=== PATIENT | male | born 1990 | race Hispanic/Latino ===

== ENCOUNTER 2021-04-15 10:28 | Outpatient (AMBR) | payer MEDICAID, SELFPAY ==
--- NOTE | 2021-04-02 14:37 | PTNOTE_ITS ---
PT OP Initial Eval Patient Information Visit Reasons: pain in right knee Medical Diagnosis: Z47.89; S83.241D Treatment Dx #1: Right Knee Pain Treatment Dx #2: Right Knee Weakness Date of Onset: 01/26/21 Initial Assessment Subjective Pt is a 31 y/o male s/p right knee arthroscopic surgery by Dr Amaro 01/26/21. Pt mention that his medial meniscus was cleaned. Pt still has pain (7/10) with certain activities. Pt has limitation with deep squat, kneeling, pivoting, c hores, standing, walking, running, taking care of his kids, and performing recreational activities. Objective Right Knee AROM: 0 deg to 140 deg Right Knee MMTs Quads: 4-/5 Hs: 3+/5 Right Hip MMTs Glute Med: 3+/5 Glute Max: 3+/5 SLS: 20 sec Deep Squat: pain towards end range Knee Cap Mobility: hypomobile laterally Assessment Pt demonstrate right knee pain and weakness s/p knee surgery leading to decline function and difficulty with ADLs. Pt will benefit from physical therapy to increase strength, stability, and work on endurance Short Term and Pattern Carrier Goals 1) Decrease knee pain to 2/10 in 8 wks to be able to perform squatting activities 2) Increase right knee MMTs grossly to 4/5 in 8 wks to be able to perform work duties 3) Increase hip MMTs grossly to 4-/5 in 8 wks to be able to perform recreational activities 4) Increase SLS to 30 sec in 8 wks to be able to perform self care activities 5) Indep with HEP Treatment Plan 1) Manual Therapy 2) Therapeutic Activities 3) Therapeutic Exercises 4) Modalities (ice, heat) 5) Balance Training 6) This patient's plan of care will be transfer to Brian Leal PT, DPT as of 04/19/21 Frequency and Duration 2 x wk for 8 wks Certification Dates: 04/02/21 to 07/02/21 Office Procedures PT Treatments PT Date of Service: 04/02/21 OP PT Eval Mod Complex 30 minutes: Yes
--- NOTE | 2021-04-06 15:24 | PT.ODAYNRPT ---
PT Outpatient Daily Note Date of Service: 04/06/21 OP Daily Note Visit Reasons: pain in right knee Outpatient Physical Therapy Treatment Date: 04/06/21 Subjective: Pt still notice sting inside his knee with walking and bending. Objective: Please see flow chart for list of ther ex performed Assessment: tolerate exercises with minimal pain Plan: Continue with PT Length of Time (minutes) of Treatment: 30 Minutes Office Procedures PT Treatments PT Date of Service: 04/02/21 OP PT Eval Mod Complex 30 minutes: Yes PT Treatments PT Date of Service: 04/06/21 Therapeutic Exercise 30 minutes: Yes
--- NOTE | 2021-04-09 11:48 | PT.ODAYNRPT ---
PT Outpatient Daily Note Date of Service: 04/09/21 OP Daily Note Visit Reasons: pain in right knee Outpatient Physical Therapy Treatment Date: 04/09/21 Subjective: Pt's knee still sting in the incision area. Overall knee feels good. Objective: Please see flow chart for list of ther ex performed Assessment: tolerate exercises with minimal pain; after prone knee flexion stretch Pt demonstrate normal knee flexion AROM Plan: Continue with PT Length of Time (minutes) of Treatment: 30 Minutes Office Procedures PT Treatments PT Date of Service: 04/02/21 OP PT Eval Mod Complex 30 minutes: Yes PT Treatments PT Date of Service: 04/06/21 Therapeutic Exercise 30 minutes: Yes PT Treatments PT Date of Service: 04/09/21 Therapeutic Exercise 30 minutes: Yes
--- NOTE | 2021-04-15 14:11 | PT.ODAYNRPT ---
PT Outpatient Daily Note Date of Service: 04/15/21 OP Daily Note Visit Reasons: pain in right knee Outpatient Physical Therapy Treatment Date: 04/15/21 Subjective: Pt's knee is about the same no change in pain more stiffness. Pt stated that he can move his legs with less stiffness Objective: Please see flow chart for list of ther ex performed Assessment: tolerate exercises with minimal pain Plan: Continue with PT Length of Time (minutes) of Treatment: 30 Minutes Office Procedures PT Treatments PT Date of Service: 04/02/21 OP PT Eval Mod Complex 30 minutes: Yes PT Treatments PT Date of Service: 04/06/21 Therapeutic Exercise 30 minutes: Yes PT Treatments PT Date of Service: 04/09/21 Therapeutic Exercise 30 minutes: Yes PT Treatments PT Date of Service: 04/15/21 Therapeutic Exercise 30 minutes: Yes
== END 2021-04-15 23:59 | disposition home or self-care (01) ==
PROVIDERS: PCP Family Medicine; Referring Provider Family Medicine; Visit Provider Family Medicine
DX: M25.561 Pain in right knee (principal); R53.1 Weakness; R26.2 Difficulty in walking, not elsewhere classified; S83.241D Other tear of medial meniscus, current injury, right knee, subsequent encounter; X58.XXXD Exposure to other specified factors, subsequent encounter
CPT/HCPCS: 97110; 97162